=== PATIENT | male | born 1980 | race Caucasian/White ===

== ENCOUNTER 2020-01-21 08:37 | Emergency (ER) | payer OTHER ==
--- NOTE | 2020-01-21 08:58 | EDM.PDOC ---
ED HPI GENERAL MEDICAL PROBLEM - General Chief Complaint: Lower Extremity Injury/Pain Stated Complaint: LEFT KNEE PAIN Time Seen by Provider: 01/21/20 09:25 Source of Information: Reports: Patient, RN Notes Reviewed - History of Present Illness INITIAL COMMENTS - FREE TEXT/NARRATIVE: 39 year old male with L knee pain. This started 2 days ago after running on a treadmill. Sounds more like repetitve stress, no specific injury. He than had "guard stuff over the weekend" so had more stress and usage of knee. Continues to have pain L knee more medial than lateral. No pain at rest, mild pain with walking and movement. No hx of prior knee problems. Left Knee Pain Score (Numeric/FACES): 7 - Related Data Allergies Allergy/AdvReac Type Severity Reaction Status Date / Time No Known Allergies Allergy Verified 01/21/20 08:50 Home Meds: Home Meds . [No Known Home Meds] 01/21/20 [History] Past Medical History - Past Health History Medical/Surgical History: Denies Medical/Surgical History Social & Family History - Tobacco Use Smoking Status *Q: Never Smoker Second Hand Smoke Exposure: No - Caffeine Use Caffeine Use: Reports: None - Recreational Drug Use Recreational Drug Use: No Review of Systems - Review of Systems Review Of Systems: See Below Constitutional: Denies: Chills, Fever Mouth/Throat: Reports: No Symptoms Respiratory: Denies: Shortness of Breath Cardiovascular: Denies: Chest Pain GI/Abdominal: Reports: No Symptoms Musculoskeletal: Reports: Joint Pain (L knee). Denies: Back Pain, Leg Pain, Joint Swelling Skin: Reports: No Symptoms Neurological: Denies: Numbness, Tingling, Weakness ED EXAM, GENERAL - Physical Exam Exam: See Below General Appearance: Alert, No Apparent Distress Head: Atraumatic Neck: Supple Respiratory/Chest: No Respiratory Distress Extremities: Other (very minimal tenderness medial knee, no visible swelling, no effusion, no warmth or erythema, good ROM with minimal discomfort, jt is stable). No: Joint Swelling, Leg Pain Skin Exam: Warm, Dry, Normal Color Course - Vital Signs Last Recorded V/S: Last Vital Signs Temp 97.0 F 01/21/20 08:47 Pulse 65 01/21/20 08:47 Resp 18 01/21/20 08:47 BP 141/91 H 01/21/20 08:47 Pulse Ox 98 01/21/20 08:47 - Re-Assessments/Exams Free Text/Narrative Re-Assessment/Exam: 01/24/20 18:05 X rays not clinically indicated at this time, MRI also not clinically indicated at this time. I have explained to patient he needs to give this some time to get better, Physical therapy good option if not getting better fairly quickly as expected. Departure - Departure Time of Disposition: 09:35 Disposition: Home, Self-Care 01 Condition: Fair Clinical Impression: Strain of left knee - Discharge Information Instructions: Muscle Strain, [id number] Referrals: Gaetano Ramos Jr, MD [Primary Care Provider] - Forms: ED Department Discharge Additional Instructions: Rest leg and knee until after pain has resolved, Advil or ibuprofen 800 mg 3 times daily with food, alternate ice and heat as needed. Follow-up with your regular medical provider or with Dr. Piña if not much better within 3 to 5 days as expected. Physical therapy is a consideration if not getting much better fairly quickly. Sepsis Event Note - Evaluation Sepsis Screening Result: No Definite Risk - Focused Exam Date Exam was Performed: 01/24/20 Time Exam was Performed: 18:06
== END 2020-01-21 09:45 | disposition home or self-care (01) ==
LOC: JD.ED 08:37
CPT/HCPCS: 99282; 99283